=== PATIENT | female | born 1985 | race Caucasian/White ===

== ENCOUNTER → 2016-07-14 | Outpatient (CLI) | payer BC ==
[~2016-07-14] VITALS: Ht 165.1 cm; Wt 102.2 kg
[~2016-07-14] MED LIST: ASPIRIN81 M2 PO; ERGOCALCIF50000 UNIT PO; IMITREX25 MG PO; SYNTHROID112 MCG PO; XANAX0.25 MG PO; ZOLOFT100 MG PO
[2016-07-14 08:31] VITALS: BP 119/79
== END | disposition home or self-care (01) ==
LOC: IVINF 08:18
PROVIDERS: Internal Medicine
DX: E27.40 Unspecified adrenocortical insufficiency (principal)
CPT/HCPCS: 80400; 82024 90; 82533 91; 96374; J0834

== ENCOUNTER 2016-10-20 20:17 | Emergency (ER) | payer OTHER, BC ==
[~2016-10-20] VITALS: Ht 165.1 cm; Wt 108.3 kg
[2016-10-20] MEDS ORDERED: PERCOCET 5/31 TABLET PO (23:09)
[2016-10-20] MEDS ORDERED: FLEXERIL10 MG PO (23:09)
[2016-10-20 23:35] VITALS: BP 132/90
== END 2016-10-20 23:36 | disposition home or self-care (01) ==
LOC: EME 20:17
DX: S20.219A Contusion of unspecified front wall of thorax, initial encounter (principal); M54.2 Cervicalgia; M25.519 Pain in unspecified shoulder; V49.40XA Driver injured in collision with unspecified motor vehicles in traffic accident, initial encounter
CPT/HCPCS: 71020; 71120; 99281; 99284